=== PATIENT | female | born 1990 | race Caucasian/White ===

== ENCOUNTER 2022-04-09 09:09 | Emergency (ER) | payer OTHER, SELFPAY ==
[2022-04-09 09:12] VITALS: BP 126/86; PULSE 84; RESP 18; TEMP 36.6; O2SAT 97; BMI 22.4
--- NOTE | 2022-04-09 09:16 | ECG_ITS ---
Test Reason : syncope Blood Pressure : / mmHG Vent. Rate : 087 BPM Atrial Rate : 087 BPM P-R Int : 152 ms QRS Dur : 070 ms QT Int : 386 ms P-R-T Axes : 076 083 065 degrees QTc Int : 464 ms Normal sinus rhythm with sinus arrhythmia Possible Left atrial enlargement Borderline ECG No previous ECGs available Referred By: Generic ED Physician Electronically Signed By:JUAN DAVID ROSE
--- OUTSIDE RECORDS SUMMARY | 2022-04-09 09:40 | XMS_ITS | Continuity of Care Document ---
:1990 Author Organization [facility] Address [address] [place] [address], [address] Floor, [address] [place] [id number]- Care Team Providers Name Role Phone Melissa SMART, Hayley Goodman Primary Care Physician Encounter [facility] [place], [place] Date(s): 03/01/19 - 06/29/19 [facility] [address] [facility], [address] [facility], [address] [place] [id number]- [facility] Attending Physician: Kirsten Cheema MD Admitting Physician: Kirsten Cheema MD Allergies, Adverse Reactions, Alerts Substance Reaction Severity Status NKA Active Immunizations Given and Recorded Vaccine Date Status Refusal Reason influenza virus vaccine, inactivated 02/05/19 Given Medications amitriptyline 10 mg oral tablet 10 mg, 1, tablet, By Mouth, Daily at bedtime, # 30 tablet, Refills 3, Tot. Refills 3, Maintenance, 02/11/19 11:57:09 EST, Route to Pharmacy Electronically, [id number], [facility]/pharmacy #[id number] Start Date: 02/11/19 Status: Orderedibuprofen 600 mg oral tablet 600 mg, 1, tablet, By Mouth, Every 8 hours, PRN, # 60 tablet, Refills 0, Tot. Refills 0, Maintenance, Pain , Moderate, 02/05/19 13:53:59 EST, Route to Pharmacy Electronically, [id number], [facility]/pharmacy #[id number] Start Date: 02/05/19 Status: OrderedSUMAtriptan 50 mg oral tablet See Instructions, PRN for migraine headache, 1 tab By Mouth as needed for headache. May repeat dose in 2 hours if needed. Do not use more than 9 days/ month., # 18 tablet, 0 Refills, Maintenance, 02/11/19 11:59:33 EST, Tablet Start Date: 02/11/19 Status: Ordered Social History Social History Type Response Smoking Status Never (less than 100 in life time) entered on: 02/05/19 Sex
--- OUTSIDE RECORDS SUMMARY | 2022-04-09 09:40 | XMS_ITS | Continuity of Care Document ---
:1990 Author Organization [facility] Address [address] [place] [address], 3rd [facility], [address] [place] [id number]- Care Team Providers Name Role Phone Melissa SMART, Hayley Goodman Primary Care Physician Encounter [facility] [place] Date(s): 05/30/19 - 06/09/19 [facility] [address] [place] [address], 3rd [facility], [address] [place] [id number]- [facility] Attending Physician: Haley Velez Admitting Physician: Haley Velez Referring Physician: AdmtrHaley Allergies, Adverse Reactions, Alerts Substance Reaction Severity Status NKA Active Immunizations Given and Recorded Vaccine Date Status Refusal Reason influenza virus vaccine, inactivated 02/05/19 Given Medications amitriptyline 10 mg oral tablet 10 mg, 1, tablet, By Mouth, Daily at bedtime, # 30 tablet, Refills 3, Tot. Refills 3, Maintenance, 02/11/19 11:57:09 EST, Route to Pharmacy Electronically, [id number], [facility]/pharmacy #[id number] Start Date: 02/11/19 Status: Orderedibuprofen 600 mg oral tablet 600 mg, 1, tablet, By Mouth, Every 8 hours, PRN, # 60 tablet, Refills 0, Tot. Refills 0, Maintenance, Pain , Moderate, 02/05/19 13:53:59 EST, Route to Pharmacy Electronically, [id number], [facility]/pharmacy #[id number] Start Date: 02/05/19 Status: OrderedSUMAtriptan 50 [...]
--- NOTE | 2022-04-09 09:51 | ED.NAVMDI ---
HPI - Nausea/Vomiting/Diarrhea General Chief complaint: Nausea/Vomiting/Diarrhea Stated complaint: diarrhea unable eat Time Seen by Provider: 04/09/22 09:22 Source: patient and family Mode of arrival: ambulatory Limitations: no limitations History of Present Illness HPI Narrative: 31-year-old female with no significant past medical history presents to the emergency department with 4 day history of diarrhea, headache, fever, chills with poor p.o. intake. She states early this morning, about 2:00 a.m., she got up to use the bathroom, sat on the toilet and passed out. She states she felt nauseous, with her head feeling 'like it was expanding', and blacked out. She states she has had similar episodes in the past with similar symptoms at onset. Her partner states that she was unconscious for roughly 2-3 minutes and awoke slightly disoriented. She states she has had difficulty eating and drinking and has been frequent episodes of diarrhea. She has flu positive contacts. At this time she endorses a slight headache and exhaustion. She denies any shortness of breath, chest pain, vision changes, dizziness, lightheadedness. Related Data Allergies Allergy/AdvReac Type Severity Reaction Status Date / Time No Known Allergies Allergy Verified 04/09/22 09:12 PENDING SALE TO [facility] Social History Social History Use of substances other than those prescribed or required for medical reasons: No Advance Directives: No Advance Directives Information Provided: No Physical Exam Vital Signs: Vital Signs: Last Vital Signs Temp 97.8 F 04/09/22 09:12 Pulse 84 04/09/22 09:12 Resp 16 04/09/22 10:08 BP 126/86 04/09/22 09:12 Pulse Ox 97 04/09/22 09:12 O2 Del Method 04/09/22 09:12 BMI result Body Mass Index 22.4 Course Course Course Narrative: 1000: 1 L NS bolus to be given for poor PO intake and frequent diarrhea 1130: After initial liter bolus patient states she feels improvement in physical symptoms. Additional 1 L normal saline bolus to be given. Patient negative for COVID, influenza swab sent. Pending UA and U preg collection. 1230: Patient able to urinate dark yellow, concentrated looking urine. Medications Administered Discontinued Medications Generic Name Dose Route Start Last Admin Trade Name Freq PRN Reason Stop Dose Admin Sodium Chloride 1,000 mls @ 999 mls/hr 04/09/22 10:00 04/09/22 11:29 Ns IV 04/09/22 11:00 Infused .Q1H1M EULOGIO Infusion Sodium Chloride 1,000 mls @ 999 mls/hr 04/09/22 11:30 04/09/22 11:29 Ns IV 04/09/22 12:30 999 mls/hr .Q1H1M EULOGIO Administration Medical Decision Making Medical Decision Making MDM Narrative: 31-year-old female with no significant past medical history presents to the emergency department with 4 day history of diarrhea, headache, fever, chills with poor p.o. intake. She states early this morning, about 2:00 a.m., she got up to use the bathroom, sat on the toilet and passed out. She states she felt nauseous, with her head feeling 'like it was expanding', and blacked out. She states she has had similar episodes in the past with similar symptoms at onset. Her partner states that she was unconscious for roughly 2-3 minutes and awoke slightly disoriented. She states she has had difficulty eating and drinking and has been frequent episodes of diarrhea. She has flu positive contacts. At this time she endorses a slight headache and exhaustion. EKG is normal sinus rhythm with sinus arrhythmia with no previous EKGs to compare to, most likely due to fluid volume depletion. Initial blood work showing increased RBC and HGB, most likely due to dehydration from poor p.o. intake and frequent diarrhea. Chemistry unremarkable. Serology negative for influenza and COVID-19. 2 L normal saline bolus given with improvement in physical symptoms per patient. History, physical exam, and diagnostic testing consistent with a acute viral illness and post defecation syncope related to fluid volume depletion secondary to frequent diarrhea and poor p.o. intake. Patient is safe for discharge at this time with plan to manage symptoms with [id number] Tylenol and Motrin with dosing per packaging. Recommended to eat a bland BRAT diet consistent of plain dry foods such as toast, crackers bananas, apples, and belkis donnie. HPI, PE, diagnostics, and plan discussed with patient and family with no unanswered questions at this time. Patient educated to return to the emergency department with new, worsening, or concerning emergent symptoms. Recommended to follow-up with her primary care provider for further treatment and management. *Refer to Course for additional information on consultations, diagnostic interpretation, consultations, emergency department stay, conversations with patient and family, shared decision making with patient, and more information on medical decision making* Lab Data MDM Lab Attestation statement: I reviewed the patient's lab results. 04/09/22 09:59 04/09/22 09:59 Labs: Lab Results 04/09/22 04/09/22 04/09/22 Range/Units 09:59 09:59 09:59 WBC 5.6 (4.8-10.8) X10*3/uL RBC 5.55 H (4.20-5.50) X10*6/uL Hgb 16.7 H (12.0-16.0) g/dl Hct 46.8 (37.0-47.0) % MCV 84.3 (80.0-98.0) fL MCH 30.1 (27.0-33.0) pg MCHC 35.7 H (31.0-35.0) g/dl RDW 11.9 (11.0-16.0) % Plt Count 234 (160-400) X10*3/uL MPV 9.2 L (9.4-12.3) fL Immature Gran % (Auto) 0.2 (0.0-0.4) % Neut % (Auto) 68.9 (45-73) % Lymph % (Auto) 14.0 L (20-40) % Nelson % (Auto) 16.2 H (2-11) % Eos % (Auto) 0.5 (0-4) % Baso % (Auto) 0.2 (0-2) % Lymph # (Auto) 0.8 L (1.2-4.9) X10*3/uL Nelson # (Auto) 0.9 (0.1-1.2) X10*3/uL Eos # (Auto) 0.0 (0.0-0.4) X10*3/uL Baso # (Auto) 0.0 (0.0-0.2) X10*3/uL Abs Immat Gran (auto) 0.01 (0.00-0.03) X10*3/uL Absolute Neuts (auto) 3.8 (2.0-8.3) x10*3/uL Absolute Nucleated RBC 0.000 (0.0-0.012) X10*3/uL Nucleated RBC % (auto) 0.0 (0.0-0.2) /100WBC Sodium 136 (135-145) mmol/L Potassium 4.1 (3.3-5.1) mmol/L Chloride 104 (96-108) mmol/L Carbon Dioxide 22 (22-29) mmol/L Anion Gap 14 (12-20) BUN 16 (9-16) mg/dL Creatinine 0.81 (0.5-1.4) mg/dL Estim Creat Clear Calc 103.4 Estimated GFR > 60 Random Glucose 98 (60-115) mg/dL Calcium 8.9 (8.4-10.2) mg/dL Total Bilirubin 0.7 (0.0-1.0) mg/dL Direct Bilirubin 0.2 (0.0-0.5) mg/dL AST 22 (5-31) U/L ALT 14 (0-31) U/L Alkaline Phosphatase 70 (39-117) U/L Total Protein 7.2 (6.5-8.0) g/dL Albumin 4.2 (3.5-5.0) g/dL Lipase 11 (8-78) U/L COVID-19 (JANEEN) Negative (Negative) COVID-19 Clin Com See Note Influenza Type A (CORNELIUS) (Negative) Influenza Type B (CORNELIUS) (Negative) Influenza A & B Note 04/09/22 Range/Units 10:34 WBC (4.8-10.8) X10*3/uL RBC (4.20-5.50) X10*6/uL Hgb (12.0-16.0) g/dl Hct (37.0-47.0) % MCV (80.0-98.0) fL MCH (27.0-33.0) pg MCHC (31.0-35.0) g/dl RDW (11.0-16.0) % Plt Count (160-400) X10*3/uL MPV (9.4-12.3) fL Immature Gran % (Auto) (0.0-0.4) % Neut % (Auto) (45-73) % Lymph % (Auto) (20-40) % Nelson % (Auto) (2-11) % Eos % (Auto) (0-4) % Baso % (Auto) (0-2) % Lymph # (Auto) (1.2-4.9) X10*3/uL Nelson # (Auto) (0.1-1.2) X10*3/uL Eos # (Auto) (0.0-0.4) X10*3/uL Baso # (Auto) (0.0-0.2) X10*3/uL Abs Immat Gran (auto) (0.00-0.03) X10*3/uL Absolute Neuts (auto) (2.0-8.3) x10*3/uL Absolute Nucleated RBC (0.0-0.012) X10*3/uL Nucleated RBC % (auto) (0.0-0.2) /100WBC Sodium (135-145) mmol/L Potassium (3.3-5.1) mmol/L Chloride (96-108) mmol/L Carbon Dioxide (22-29) mmol/L Anion Gap (12-20) BUN (9-16) mg/dL Creatinine (0.5-1.4) mg/dL Estim Creat Clear Calc Estimated GFR Random Glucose (60-115) mg/dL Calcium (8.4-10.2) mg/dL Total Bilirubin (0.0-1.0) mg/dL Direct Bilirubin (0.0-0.5) mg/dL AST (5-31) U/L ALT (0-31) U/L Alkaline Phosphatase (39-117) U/L Total Protein (6.5-8.0) g/dL Albumin (3.5-5.0) g/dL Lipase (8-78) U/L COVID-19 (JANEEN) (Negative) COVID-19 Clin Com Influenza Type A (CORNELIUS) Negative (Negative) Influenza Type B (CORNELIUS) Negative (Negative) Influenza A & B Note See Note Independent Interpretation I performed an independent interpretation of an: EKG Interpretation: And independently reviewed the EKG showing normal sinus rhythm with sinus arrhythmia with no previous EKGs to compare to. Vent. Rate : 087 BPM ? ? Atrial Rate : 087 BPM ?? P-R Int : 152 ms? QRS Dur : 070 ms ? ? QT Int : 386 ms ? ? ? P-R-T Axes : 076 083 065 degrees ?? QTc Int : 464 ms ? Normal sinus rhythm with sinus arrhythmia Possible Left atrial enlargement Borderline ECG No previous ECGs available Discharge Plan Discharge Clinical Impression: Viral infection, Diarrhea, Vasovagal syncope Patient Disposition: Home, Self-Care Instructions: Syncope (ED), Acute Diarrhea (ED) Additional Instructions: Your blood work was consistent with dehydration any received 2 L of normal saline for fluid replacement. Your nasal swabs are negative for COVID-19 and influenza. Your history, physical exam, and diagnostic testing is consistent with an acute viral infection. There are no prescriptions tests area at this time. It is recommended that you start eating bland dry foods (such as bananas, rice, apples, toast, saltine crackers, etc) and belkis donnie. Try to increase your by mouth fluid intake to avoid further dehydration. You may manage your symptoms with [id number] Tylenol and/or Motrin with dosing per packaging. Please return to the emergency department with new, worsening, or concerning emergent symptoms. It is recommended that you follow-up with your primary care provider for further treatment and management. Referrals: [facility] [facility] [place] Group] [facility] [facility] [Provider Group] [facility] Care[place] [Provider Group] Stand Alone Forms: Work/School Release Interventions: ED Discharge Assessment Last Done: 04/09/22 13:01 Discharge Date/Time: 04/09/22 13:02 Print Language: Kyrgyz
[2022-04-09] MEDS: 0.9 % Sodium Chloride 1,000 ML 999 ML IV ×2 (10:02→11:29)
[2022-04-09 10:03] LABS: MANUAL DIFF FLAG NO
[2022-04-09 10:06] LABS: Basophils Percent Auto 0.2 % (0-2); Eosinophils Percent Auto 0.5 % (0-4); Hematocrit 46.8 % (37.0-47.0); Hemoglobin 16.7 g/dl (12.0-16.0); Imm Gran Abs Auto 0.01 X10*3/uL (0.00-0.03); Imm Gran Pct Auto 0.2 % (0.0-0.4); Lymphocytes Absolute Auto 0.8 X10*3/uL (1.2-4.9); Mean Corpuscular HGB Conc 35.7 g/dl (31.0-35.0); Mean Corpuscular Hemoglobin 30.1 pg (27.0-33.0); Mean Corpuscular Volume 84.3 fL (80.0-98.0); Mean Platelet Volume 9.2 fL (9.4-12.3); Monocytes Absolute Auto 0.9 X10*3/uL (0.1-1.2); Monocytes Percent Auto 16.2 % (2-11); Neutrophils Absolute Auto 3.8 x10*3/uL (2.0-8.3); Neutrophils Percent Auto 68.9 % (45-73); Platelet Count 234 X10*3/uL (160-400); Red Blood Count 5.55 X10*6/uL (4.20-5.50); Red Cell Distribution Width 11.9 % (11.0-16.0); White Blood Count 5.6 X10*3/uL (4.8-10.8)
[2022-04-09 10:08] VITALS: RESP 16
--- NOTE | 2022-04-09 10:11 | PC.NURSE ---
Alert and oriented. IV established, labs drawn and sent. Fluids running at this time.
[2022-04-09 10:20] LABS: COVID-19 Test Negative (Negative); IDNOW Serial# 6674DD1D
[2022-04-09 10:35] LABS: Alanine Aminotransferase 14 U/L (0-31); Albumin Level 4.2 g/dL (3.5-5.0); Alkaline Phosphatase 70 U/L (39-117); Anion Gap 14 (12-20); Aspartate Amino Transferase 22 U/L (5-31); Bilirubin Direct 0.2 mg/dL (0.0-0.5); Bilirubin Total 0.7 mg/dL (0.0-1.0); Blood Urea Nitrogen 16 mg/dL (9-16); Calcium 8.9 mg/dL (8.4-10.2); Carbon Dioxide 22 mmol/L (22-29); Chloride 104 mmol/L (96-108); Creatinine Clr Calc Pharmacy 103.4; Estimated Glomerular Filt Rate > 60; Glucose Random 98 mg/dL (60-115); Lipase 11 U/L (8-78); Potassium 4.1 mmol/L (3.3-5.1); Sodium 136 mmol/L (135-145); Total Protein 7.2 g/dL (6.5-8.0)
[2022-04-09 10:56] LABS: IDNOW Serial# 16C4AD1C; Influenza A Negative (Negative); Influenza B2 Negative (Negative)
== END 2022-04-09 13:02 | disposition home or self-care (01) ==
PROVIDERS: Nurse Practitioner Family; Emergency Provider Emergency Medicine Emergency Medical Services
DX: B34.9 Viral infection, unspecified (principal); R19.7 Diarrhea, unspecified; R55 Syncope and collapse; Z20.822 Contact with and (suspected) exposure to COVID-19; Z20.828 Contact with and (suspected) exposure to other viral communicable diseases
CPT/HCPCS: 80053; 82248; 83690; 85025; 87502; 87635; 93005; 96360; 99284; 99285

== ENCOUNTER 2022-06-27 12:11 | Emergency (ER) | payer OTHER, SELFPAY ==
[2022-06-27 12:52] VITALS: BP 122/95; PULSE 80; RESP 16; TEMP 36.9; O2SAT 98; BMI 22.7
--- NOTE | 2022-06-27 12:58 | ED_ITS ---
HPI - General Adult General Chief complaint: Dizziness <JONNA Tracey - Last Filed: 07/10/22 12:49> Stated complaint: dizzy <JONNA Tracey - Last Filed: 07/10/22 12:49> Time Seen by Provider: 06/27/22 14:52 <JONNA Tracey - Last Filed: 07/10/22 12:49> Source: patient <Lang Shah MD - Last Filed: 06/27/22 17:22> Mode of arrival: ambulatory <Lang Shah MD - Last Filed: 06/27/22 17:22> Limitations: no limitations <Lang Shah MD - Last Filed: 06/27/22 17:22> History of Present Illness HPI narrative: 31-year-old female presents with dizziness. Symptoms happened earlier today. She describes symptoms a as movement. She denied any lightheadedness. She describes symptoms as moderate to severe. They are worse with movement. They were associated with some vision changes. She denies any nausea vomiting. She denied any other focal neurologic deficits. Subsequently, patient has developed a right-sided migraine headache which she describes the pain as a 6/10. The pain does not radiate. Associated with photo and phonophobia. She denies any nausea vomiting associated with a. Symptoms are similar to previous migraines with the exception the dizziness. She has no prior treatment. Typically she is able to abort the headache with Tylenol and ibuprofen. <Lang Shah MD - Last Filed: 06/27/22 17:22> Related Data Home medications: Previous Rx's Medication Instructions Recorded meclizine 25 mg tablet 25 mg PO BID PRN dizziness #7 tabs 06/27/22 <JONNA Tracey - Last Filed: 07/10/22 12:49> Allergies/adverse reactions: Allergies Allergy/AdvReac Type Severity Reaction Status Date / Time No Known Allergies Allergy Verified 04/09/22 09:12 <JONNA Tracey - Last Filed: 07/10/22 12:49> [facility] Social History Social History: Social History Advance Directives: No Advance Directives Information Provided: Yes <JONNA Tracey - Last Filed: 07/10/22 12:49> Physical Exam ED Vital Signs: Vital Signs - 24 hr 06/27/22 12:52 Temperature 98.4 F Pulse Rate 80 Respiratory Rate 16 Blood Pressure 122/95 H Pulse Oximetry 98 Oxygen Delivery Method Room Air BMI result Body Mass Index 22.7 <JONNA Tracey - Last Filed: 07/10/22 12:49> Vital Signs - 24 hr 06/27/22 12:52 Temperature 98.4 F Pulse Rate 80 Respiratory Rate 16 Blood Pressure 122/95 H Pulse Oximetry 98 Oxygen Delivery Method Room Air BMI result Body Mass Index 22.7 <Lang Shah MD - Last Filed: 06/27/22 17:22> GEN: Well developed, no acute distress, alert, oriented HEENT: Normocephalic, atraumatic, normal external ears, nose appears normal, no oropharyngeal edema or exudates, tympanic membranes clear Eyes: Normal to appearance, left-sided 12 beat nystagmus Neck: Supple, no lymphadenopathy Respiratory: Talks in complete sentences, no respiratory distress, clear to auscultation bilaterally Cardiovascular: Regular rate and rhythm, no murmurs rubs or gallops Abdomen: Soft, nontender, nondistended, no guarding, no rebound Back: No CVA tenderness Extremities: No clubbing cyanosis or edema Neurologic: No focal neurologic deficits, cranial nerves 2-12 intact, strength is 5/5 bilaterally, gait normal Skin: No rash <Lang Shah MD - Last Filed: 06/27/22 17:22> Course Course Course Narrative: RmE: 31-year-old female presents to the ED with migraine exacerbation symptoms. Patient states outgrow started have headache, and photophobia. Patient denies any neck stiffness fever or chills. Patient denies any slurred speech, paralysis of extremities, or loss of vision. Physical exam negative for any neuro deficits. Negative for signs of meningitis. Negative for nuchal rigidity. Ear oral exam normal. Will order basic labs. Patient may receive migraine cocktail in the ED when she get a bed. Initial exam does not indicate stroke or meningitis. <JONNA Tracey - Last Filed: 07/10/22 12:49> Reevaluation(s) Reevaluation #1: Will treat patient for migraine headache and dizziness at this 8 time. Reglan can help both vertigo and migraine. <Lang Shah MD - Last Filed: 06/27/22 17:22> Time: 15:30 <Lang Shah MD - Last Filed: 06/27/22 17:22> Reevaluation #2: feeling much better would like to go home. <Lang Shah MD - Last Filed: 06/27/22 17:22> Time: 17:21 <Lang Shah MD - Last Filed: 06/27/22 17:22> Medications Administered Discontinued Medications Generic Name Dose Route Start Last Admin Trade Name Freq PRN Reason Stop Dose Admin Sodium Chloride 1,000 mls @ 999 mls/hr 06/27/22 15:30 06/27/22 16:37 Ns IV 06/27/22 16:30 Infused .Q1H1M EULOGIO Infusion Ketorolac Tromethamine 15 mg 06/27/22 15:20 06/27/22 15:39 Ketorolac Tromethamine 15 Mg/Ml Vial IVPUSH 06/27/22 15:21 15 mg ONCE ONE Administration Metoclopramide HCl 10 mg 06/27/22 15:20 06/27/22 15:39 Metoclopramide Hcl 10 Mg/2 Ml Vial IVPUSH 06/27/22 15:21 10 mg ONCE ONE Administration <JONNA Tracey - Last Filed: 07/10/22 12:49> Medications Administered Discontinued Medications Generic Name Dose Route Start Last Admin Trade Name Freq PRN Reason Stop Dose Admin Sodium Chloride 1,000 mls @ 999 mls/hr 06/27/22 15:30 06/27/22 16:37 Ns IV 06/27/22 16:30 Infused .Q1H1M EULOGIO Infusion Ketorolac Tromethamine 15 mg 06/27/22 15:20 06/27/22 15:39 Ketorolac Tromethamine 15 Mg/Ml Vial IVPUSH 06/27/22 15:21 15 mg ONCE ONE Administration Metoclopramide HCl 10 mg 06/27/22 15:20 06/27/22 15:39 Metoclopramide Hcl 10 Mg/2 Ml Vial IVPUSH 06/27/22 15:21 10 mg ONCE ONE Administration <Lang Shah MD - Last Filed: 06/27/22 17:22> Medical Decision Making Medical Decision Making MDM Narrative: Patient presents with 2 issues at this time. She has vertiginous symptom s. She has the sensation of movement. Examination was benign with the exception of 12 beat nystagmus to the left. There are no focal deficits. Nystagmus was horizontal in a vertical. Doubt central etiology. This is most likely a peripheral vertigo. This could be a prodrome for her migraine or could be precipitating of migraine. Additionally she has a typical migraine which is right-sided for her. She has no meningeal signs to suggest acute meningitis, subarachnoid hemorrhage. Will treat her symptomatically, re-evaluate. <Lang Shah MD - Last Filed: 06/27/22 17:22> Differential Diagnosis Differential Diagnoses: The differential diagnosis associated with the presentation includes (Vertigo, dehydration, electrolyte abnormality, anemia, migraine, prodrome) <Lang Shah MD - Last Filed: 06/27/22 17:22> vertigo, migraine <Lang Shah MD - Last Filed: 06/27/22 17:22> Admission/Observation Consideration of admission/observation: Escalation of care including admission/observation considered <Lang Shah MD - Last Filed: 06/27/22 17:22> Lab Data MDM Lab Attestation statement: I reviewed the patient's lab results. <Lang Shah MD - Last Filed: 06/27/22 17:22> Result Diagrams: 06/27/22 13:32 06/27/22 13:32 <JONNA Tracey - Last Filed: 07/10/22 12:49> Labs: Lab Results 06/27/22 06/27/22 Range/Units 13:32 13:32 WBC 6.8 (4.8-10.8) X10*3/uL RBC 4.89 (4.20-5.50) X10*6/uL Hgb 14.7 (12.0-16.0) g/dl Hct 42.9 (37.0-47.0) % MCV 87.7 (80.0-98.0) fL MCH 30.1 (27.0-33.0) pg MCHC 34.3 (31.0-35.0) g/dl RDW 12.3 (11.0-16.0) % Plt Count 219 (160-400) X10*3/uL MPV 9.3 L (9.4-12.3) fL Immature Gran % (Auto) 0.3 (0.0-0.4) % Neut % (Auto) 63.3 (45-73) % Lymph % (Auto) 27.7 (20-40) % [place] % (Auto) 8.0 (2-11) % Eos % (Auto) 0.4 (0-4) % Baso % (Auto) 0.3 (0-2) % Lymph # (Auto) 1.9 (1.2-4.9) X10*3/uL [place] # (Auto) 0.5 (0.1-1.2) X10*3/uL Eos # (Auto) 0.0 (0.0-0.4) X10*3/uL Baso # (Auto) 0.0 (0.0-0.2) X10*3/uL Abs Immat Gran (auto) 0.02 (0.00-0.03) X10*3/uL Absolute Neuts (auto) 4.3 (2.0-8.3) x10*3/uL Absolute Nucleated RBC 0.000 (0.0-0.012) X10*3/uL Nucleated RBC % (auto) 0.0 (0.0-0.2) /100WBC Sodium 137 (135-145) mmol/L Potassium 4.7 (3.3-5.1) mmol/L Chloride 106 (96-108) mmol/L Carbon Dioxide 24 (22-29) mmol/L Anion Gap 12 (12-20) BUN 11 (9-16) mg/dL Creatinine 0.79 (0.5-1.4) mg/dL Estim Creat Clear Calc 102.2 Estimated GFR > 60 Random Glucose 85 (60-115) mg/dL Calcium 9.0 (8.4-10.2) mg/dL Total Bilirubin 0.6 (0.0-1.0) mg/dL AST 18 (5-31) U/L ALT 13 (0-31) U/L Alkaline Phosphatase 67 (39-117) U/L Total Protein 6.7 (6.5-8.0) g/dL Albumin 4.1 (3.5-5.0) g/dL Beta HCG, Quant < 2 mIU/mL <JONNA Tracey - Last Filed: 07/10/22 12:49> Lab Results 06/27/22 06/27/22 Range/Units 13:32 13:32 WBC 6.8 (4.8-10.8) X10*3/uL RBC 4.89 (4.20-5.50) X10*6/uL Hgb 14.7 (12.0-16.0) g/dl Hct 42.9 (37.0-47.0) % MCV 87.7 (80.0-98.0) fL MCH 30.1 (27.0-33.0) pg MCHC 34.3 (31.0-35.0) g/dl RDW 12.3 (11.0-16.0) % Plt Count 219 (160-400) X10*3/uL MPV 9.3 L (9.4-12.3) fL Immature Gran % (Auto) 0.3 (0.0-0.4) % Neut % (Auto) 63.3 (45-73) % Lymph % (Auto) 27.7 (20-40) % [place] % (Auto) 8.0 (2-11) % Eos % (Auto) 0.4 (0-4) % Baso % (Auto) 0.3 (0-2) % Lymph # (Auto) 1.9 (1.2-4.9) X10*3/uL [place] # (Auto) 0.5 (0.1-1.2) X10*3/uL Eos # (Auto) 0.0 (0.0-0.4) X10*3/uL Baso # (Auto) 0.0 (0.0-0.2) X10*3/uL Abs Immat Gran (auto) 0.02 (0.00-0.03) X10*3/uL Absolute Neuts (auto) 4.3 (2.0-8.3) x10*3/uL Absolute Nucleated RBC 0.000 (0.0-0.012) X10*3/uL Nucleated RBC % (auto) 0.0 (0.0-0.2) /100WBC Sodium 137 (135-145) mmol/L Potassium 4.7 (3.3-5.1) mmol/L Chloride 106 (96-108) mmol/L Carbon Dioxide 24 (22-29) mmol/L Anion Gap 12 (12-20) BUN 11 (9-16) mg/dL Creatinine 0.79 (0.5-1.4) mg/dL Estim Creat Clear Calc 102.2 Estimated GFR > 60 Random Glucose 85 (60-115) mg/dL Calcium 9.0 (8.4-10.2) mg/dL Total Bilirubin 0.6 (0.0-1.0) mg/dL AST 18 (5-31) U/L ALT 13 (0-31) U/L Alkaline Phosphatase 67 (39-117) U/L Total Protein 6.7 (6.5-8.0) g/dL Albumin 4.1 (3.5-5.0) g/dL Beta HCG, Quant < 2 mIU/mL <Lang Shah MD - Last Filed: 06/27/22 17:22> Independent Interpretation I performed an independent interpretation of an: EKG (Normal sinus rhythm heart rate 68, no acute ST elevations or depressions, normal intervals) <Lang Shah MD - Last Filed: 06/27/22 17:22> Prescription Management I considered prescription management with: Pain Medication and Other (Reglan, IV fluids, Toradol) <Lang Shah MD - Last Filed: 06/27/22 17:22> Chronic Conditions Patient?s care impacted by: Other (Migraine headache) <Lang Shah MD - Last Filed: 06/27/22 17:22> Discharge Plan Discharge Clinical Impression: Vertigo, Headache, migraine <JONNA Tracey - Last Filed: 07/10/22 12:49> Patient Disposition: Home, Self-Care <JONNA Tracey - Last Filed: 07/10/22 12:49> Instructions: Migraine Headache (ED), Vertigo (ED), Dizziness (ED) <JONNA Tracey - Last Filed: 07/10/22 12:49> Prescriptions: New meclizine 25 mg tablet 25 mg PO BID PRN (Reason: dizziness) Qty: 7 0RF <JONNA Tracey Last Filed: 07/10/22 12:49> Referrals: Physician,Unknown J [Primary Care Provider] - (as needed) <JONNA Tracey - Last Filed: 07/10/22 12:49> Interventions: ED Discharge Assessment Last Done: 06/27/22 17:30 <JONNA Tracey - Last Filed: 07/10/22 12:49> Discharge Date/Time: 06/27/22 17:30 <JONNA Tracey - Last Filed: 07/10/22 12:49>
[2022-06-27 13:36] LABS: MANUAL DIFF FLAG NO
[2022-06-27 13:39] LABS: Basophils Percent Auto 0.3 % (0-2); Eosinophils Percent Auto 0.4 % (0-4); Hematocrit 42.9 % (37.0-47.0); Hemoglobin 14.7 g/dl (12.0-16.0); Imm Gran Abs Auto 0.02 X10*3/uL (0.00-0.03); Imm Gran Pct Auto 0.3 % (0.0-0.4); Lymphocytes Absolute Auto 1.9 X10*3/uL (1.2-4.9); Lymphocytes Percent Auto 27.7 % (20-40); Mean Corpuscular HGB Conc 34.3 g/dl (31.0-35.0); Mean Corpuscular Hemoglobin 30.1 pg (27.0-33.0); Mean Corpuscular Volume 87.7 fL (80.0-98.0); Mean Platelet Volume 9.3 fL (9.4-12.3); Monocytes Absolute Auto 0.5 X10*3/uL (0.1-1.2); Neutrophils Absolute Auto 4.3 x10*3/uL (2.0-8.3); Neutrophils Percent Auto 63.3 % (45-73); Platelet Count 219 X10*3/uL (160-400); Red Blood Count 4.89 X10*6/uL (4.20-5.50); Red Cell Distribution Width 12.3 % (11.0-16.0); White Blood Count 6.8 X10*3/uL (4.8-10.8)
[2022-06-27 13:58] LABS: Alanine Aminotransferase 13 U/L (0-31); Albumin Level 4.1 g/dL (3.5-5.0); Alkaline Phosphatase 67 U/L (39-117); Anion Gap 12 (12-20); Aspartate Amino Transferase 18 U/L (5-31); Bilirubin Total 0.6 mg/dL (0.0-1.0); Blood Urea Nitrogen 11 mg/dL (9-16); Carbon Dioxide 24 mmol/L (22-29); Chloride 106 mmol/L (96-108); Creatinine Clr Calc Pharmacy 102.2; Estimated Glomerular Filt Rate > 60; Glucose Random 85 mg/dL (60-115); Potassium 4.7 mmol/L (3.3-5.1); Sodium 137 mmol/L (135-145); Total Protein 6.7 g/dL (6.5-8.0)
[2022-06-27 14:00] LABS: HCG Quantitative < 2 mIU/mL
--- NOTE | 2022-06-27 15:23 | ECG_ITS ---
Test Reason : DIZZNESS Blood Pressure : / mmHG Vent. Rate : 068 BPM Atrial Rate : 068 BPM P-R Int : 178 ms QRS Dur : 070 ms QT Int : 444 ms P-R-T Axes : 020 076 055 degrees QTc Int : 472 ms Normal sinus rhythm Normal ECG When compared with ECG of 09-APR-2022 09:18, No significant changes seen Referred By: Lang Shah Electronically Signed By:JUAN DAVID ROSE
[2022-06-27] MEDS: 0.9 % Sodium Chloride 1,000 ML 999 ML IV (15:35)
[2022-06-27] MEDS: Ketorolac Tromethamine 15 MG/ML VIAL IVPUSH (15:39)
[2022-06-27] MEDS: Metoclopramide HCl 10 MG/2 ML VIAL IVPUSH (15:39)
== END 2022-06-27 17:30 | disposition home or self-care (01) ==
PROVIDERS: Physician Assistant; Emergency Provider Emergency Medicine
DX: R42 Dizziness and giddiness (principal); G43.909 Migraine, unspecified, not intractable, without status migrainosus; Z79.899 Other long term (current) drug therapy
CPT/HCPCS: 36415; 80053; 84702; 85025; 93005; 96361; 96374; 96375; 99284; J1885; J2765